=== PATIENT | male | born 1965 | race Caucasian/White ===

== ENCOUNTER 2016-08-29 23:44 | Emergency (ER) | payer SELFPAY ==
[~2016-08-29 23:44] MED LIST: ACID REDUCER75 M1 PO; ADULT LOW DOSE81 M1 PO; ALLERGY MED; ANTIVERT25 M1 PO; CYCLOBENZAPRINE5 M1 PO; GLIPIZIDE10 M2 PO; GLUCOPHAGE1000 M1 PO; GUMMI BEAR MUL1 EAC1 PO; HYDROCODON-ACE1 EA16 PO; KEFLEX500 M4 PO; LISINOPRIL20 M1 PO; MECLIZINE HCL25 M3 PO; MEN'S MULTIVI200 MCG PO; NORCO 5/3251 TAB PO; ONE-TABLET-DAI1 EACH PO; REGLAN10 M2 PO; VALIUM2 M1 PO; VALIUM5 M1 PO; VITAMIN C500 M4 PO
[2016-08-30 00:39] LABS: BASO % 0.5 % (0-2); BASO ABSOLUTE COUNT 0.1 tho/cmm (0.0-0.2); EOS % 1.6 % (0-7); EOSINOPHIL ABSOLUTE COUNT 0.2 tho/cmm (0.0-0.7); HCT-HEMATOCRIT 39.1 % (36.0-53.5); HGB-HEMOGLOBIN 13.8 gm/dl (13.5-17.0); IMMATURE GRANULOCYTES ABSOLUTE 0.04 tho/cmm (0-0.03); IMMATURE GRANULOCYTES PERCENT 0.3 % (0-0.3); LYMPH % 34.4 % (20-45); LYMPH ABSOLUTE COUNT 4.2 tho/cmm (0.8-4.5); MCH (MEAN CORPUSCULAR HGB) 29.6 pg (28.0-32.0); MCHC MEAN CORPUSCULAR HGB CONC 35.3 % (32.0-36.0); MCV (MEAN CELL VOLUME) 83.7 fl (82.0-96.0); MEAN PLATELET VOLUME 10.5 cmc (9.4-12.4); MONO % 6.8 % (0-12); MONOCYTE ABSOLUTE COUNT 0.8 tho/cmm (0.0-1.2); NEUTROPHIL ABSOLUTE COUNT 6.9 tho/cmm (1.6-8.0); NEUTROPHIL-AUTOMATED 6.9 tho/cmm (1.6-8.0); NEUTROPHILS % 56.4 % (40-80); PLATELET COUNT 222 tho/cmm (150-450); RED BLOOD COUNT 4.67 mil/cmm (4.40-5.70); RED CELL DISTRIBUTION WIDTH 12.5 % (12.4-16.4); URINE BILIRUBIN NEGATIVE (NEG); URINE BLOOD NEGATIVE (NEG); URINE GLUCOSE (UA) NEGATIVE (NEG); URINE KETONE SMALL (NEG); URINE LEUKOCYTE ESTERASE POSITIVE (NEG); URINE NITRITE NEGATIVE (NEG); URINE PROTEIN NEGATIVE (NEG); URINE SPECIFIC GRAVITY 1.025 (1.003-1.030); WHITE BLOOD COUNT 12.2 tho/cmm (4.0-10.0)
[2016-08-30 00:41] LABS: URINE APPEARANCE HAZY; URINE COLOR YELLOW
[2016-08-30 00:48] LABS: URINE BACTERIA 1+; URINE EPITHELIAL CELLS RARE /[HPF] (0-10); URINE RBC 0 /[HPF] (0-5)
[2016-08-30 00:53] LABS: ALB/GLOB RATIO 1.1 (0.8-2.0); ALKALINE PHOSPHATASE 66 U/L (33-138); ALT/SGPT 61 U/L (12-78); ANION GAP 13 mmol/L (0-20); AST/SGOT 28 U/L (10-40); BILIRUBIN,TOTAL 0.5 mg/dl (0.0-1.5); BLOOD UREA NITROGEN 13 mg/dl (6-24); CALCIUM 8.7 mg/dl (8.5-10.5); CARBON DIOXIDE-VENOUS 24 mmol/L (22-32); CHLORIDE 105 mmol/l (96-110); CREATININE 0.96 mg/dl (0.60-1.30); GLUCOSE 165 mg/dL (70-110); POTASSIUM 3.9 mmol/L (3.7-5.1); SODIUM 138 mmol/L (135-145); eGFR VALUE FOR BLACK >90 mL/Min
[2017-01-06] MEDS ORDERED: ASPIRIN EC81 MG PO (13:41)
== END 2016-08-30 03:11 ==
LOC: EDMED 23:44
PROVIDERS: Nurse Practitioner Family
DX: K57.30 Diverticulosis of large intestine without perforation or abscess without bleeding (principal); K64.8 Other hemorrhoids; K64.4 Residual hemorrhoidal skin tags; E11.9 Type 2 diabetes mellitus without complications; I10 Essential (primary) hypertension; Z90.49 Acquired absence of other specified parts of digestive tract; Z88.0 Allergy status to penicillin; Z79.899 Other long term (current) drug therapy
CPT/HCPCS: J2270; J7030; Q9967